=== PATIENT | female | born 1950 | race Caucasian/White ===

== ENCOUNTER 2017-12-07 16:34 | Emergency (ER) | payer MEDICARE, OTHER ==
[~2017-12-07 16:34] MED LIST: AMOX-559 PO; CHOL10005 PO; CIPDEXPT RIGHT EAR; UBID50TA3 PO
--- NOTE | 2017-12-07 17:22 | ER Report ---
History and Physical Hx. of Stated Complaint: Patient with some memory loss from earlier today. States she has had a "blip" like this before (SELENA SCOTT MD) Time Seen By MD: 16:45 [facility] HPI/ROS CHIEF COMPLAINT: Transient memory loss, brief HISTORY OF PRESENT ILLNESS: 67-year-old female with history of transient global amnesia 2, high cholesterol but good cholesterol is high than back cholesterol and ratio is okay and no smoking history denies prior strokes or heart attacks presents with brief memory loss after riding an email and getting a phone call during the email from an old friend whereby she spent over. 45 minutes on the phone. When she returned to her email she cannot recall exact contents of the email or why she sent to so many people. She reports the email was related to a committee meeting. Denies weakness, numbness, headache, nausea, chest pain, shortness of breath or diaphoresis. She does not think this was a stroke. She has not had any other neurological deficits. This occurred today. No other concerns or complaints today. REVIEW OF SYSTEMS: Constitutional: No fever, no chills. Eyes: No discharge. ENT: No sore throat. Cardiovascular: No chest pain, no palpitations. Respiratory: No cough, no shortness of breath. Gastrointestinal: No abdominal pain, no vomiting. Genitourinary: No hematuria. Musculoskeletal: No back pain. Skin: No rashes. Neurological: No headache. (SELENA SCOTT MD) Allergies: Coded Allergies: Sulfa (Sulfonamide Antibiotics) (Verified Allergy, Mild, irritates eyes, ) Home Meds Reported Medications Cholecalciferol (Vitamin D3) (VITAMIN D3) 1,000 Unit Tablet, 1000 UNIT PO, TAB 06/03/17 Discontinued Reported Medications Ubidecarenone (COQ10) Unknown Strength Tab.chew, PO, TAB.CHEW 06/03/17 Discontinued Scripts Ciprofloxacin/Dexamethasone 0.3%-0.1% Otic [place] (CIPRODEX 0.3%-0.1% OTIC SUSP) 7.5 Ml Soln, 5 DROP RIGHT EAR BID for 7 Days, #1 BOT 0 Refills Prov:BHUMIKA MCINTYRE JR, MD 06/19/17 Amoxicillin/Pot Clav 875-125 Mg Tab (AUGMENTIN 875-125 TABLET) 1 Each Tablet, 1 TAB PO Q12H for 14 Days, #28 TAB Prov:BHUMIKA MCINTYRE JR, MD 06/15/17 Smoking Status: Never Smoker (SELENA SCOTT MD) Constitutional Vital Sign - Last 24 Hours 12/07/17 12/07/17 12/07/17 12/07/17 16:39 16:45 17:00 17:15 Temp 98.5 Pulse 89 85 85 88 Resp 16 15 20 B/P (MAP) 155/85 150/101 (117) Pulse Ox 91 94 95 O2 Delivery Room Air 12/07/17 12/07/17 12/07/17 12/07/17 17:30 17:45 18:00 18:30 Pulse 75 79 76 76 Resp 11 22 B/P (MAP) 132/87 (102) 149/81 (103) 168/104 (125) Pulse Ox 92 (RODRIGUEZ WASHINGTON MD) Physical Exam General Appearance: The patient is alert, has no immediate need for airway protection and no signs of toxicity. Smiling, in no acute distress. Eyes: Pupils equal and round no pallor or injection. ENT, Mouth: Mucous membranes are moist. Respiratory: There are no retractions, lungs are clear to auscultation. Cardiovascular: Regular rate and rhythm. No murmurs gallops or rubs Gastrointestinal: Abdomen is soft and non tender, no masses, bowel sounds normal. Neurological: Normal full neurological exam including normal cerebellar function bilateral upper and lower extremities as well as normal Romberg. Skin: Warm and dry, no rashes. Musculoskeletal: Neck is supple non tender. Extremities are nontender, nonswollen and have full range of motion. No edema DIFFERENTIAL DIAGNOSIS: After history and physical exam differential diagnosis was considered for transient transient global amnesia, transient ischemia due to underlying medical cause, stroke or TIA. (SELENA SCOTT MD) Medical Decision Making Data Points Result Diagram: 12/07/17 1746 12/07/17 1746 Laboratory Hematology Test 12/07/17 17:46 Red Blood Count 4.84 M/uL (4.17-5.56) Mean Corpuscular Volume 89.0 fL (80.0-96.0) Mean Corpuscular Hemoglobin 30.2 pg (26.0-33.0) Mean Corpuscular Hemoglobin Concent 33.9 g/dL (32.0-36.0) Red Cell Distribution Width 13.4 % (11.5-14.5) Mean Platelet Volume 7.9 fL (7.2-11.1) Neutrophils (%) (Auto) 62.8 % (39.4-72.5) Lymphocytes (%) (Auto) 28.7 % (17.6-49.6) Monocytes (%) (Auto) 7.6 % (4.1-12.4) Eosinophils (%) (Auto) 0.4 % (0.4-6.7) Basophils (%) (Auto) 0.5 % (0.3-1.4) Nucleated RBC Relative Count (auto) 0.0 /100WBC Neutrophils # (Auto) 3.5 K/uL (2.0-7.4) Lymphocytes # (Auto) 1.6 K/uL (1.3-3.6) Monocytes # (Auto) 0.4 K/uL (0.3-1.0) Eosinophils # (Auto) 0.0 K/uL (0.0-0.5) Basophils # (Auto) 0.0 K/uL (0.0-0.1) Nucleated RBC Absolute Count (auto) 0.00 K/uL Sodium Level 138 mmol/L (137-145) Potassium Level 4.1 mmol/L (3.5-5.0) Chloride Level 104 mmol/L (98-107) Carbon Dioxide Level 23 mmol/L (22-31) Blood Urea Nitrogen 11 mg/dl (7-18) Creatinine 0.80 mg/dl (0.52-1.04) Glomerular Filtration Rate Calc > 60.0 Random Glucose 94 mg/dl (75-110) Calcium Level 9.2 mg/dl (8.4-10.2) Total Bilirubin 0.6 mg/dl (0.2-1.3) Aspartate Amino Transf (AST/SGOT) 21 U/L (0-35) Alanine Aminotransferase (ALT/SGPT) 35 U/L (0-56) Alkaline Phosphatase 92 U/L (0-126) Troponin I < 0.012 ng/ml B-Type Natriuretic Peptide 22 pg/ml (0-100) Total Protein 7.0 gm/dl (6.3-8.2) Albumin 4.1 g/dl (3.5-5.0) Chemistry Test 12/07/17 17:46 White Blood Count 5.6 k/uL (4.5-11.0) Red Blood Count 4.84 M/uL (4.17-5.56) Hemoglobin 14.6 g/dL (12.0-16.0) Hematocrit 43.0 % (34.0-47.0) Mean Corpuscular Volume 89.0 fL (80.0-96.0) Mean Corpuscular Hemoglobin 30.2 pg (26.0-33.0) Mean Corpuscular Hemoglobin Concent 33.9 g/dL (32.0-36.0) Red Cell Distribution Width 13.4 % (11.5-14.5) Platelet Count 284 K/uL (150-450) Mean Platelet Volume 7.9 fL (7.2-11.1) Neutrophils (%) (Auto) 62.8 % (39.4-72.5) Lymphocytes (%) (Auto) 28.7 % (17.6-49.6) Monocytes (%) (Auto) 7.6 % (4.1-12.4) Eosinophils (%) (Auto) 0.4 % (0.4-6.7) Basophils (%) (Auto) 0.5 % (0.3-1.4) Nucleated RBC Relative Count (auto) 0.0 /100WBC Neutrophils # (Auto) 3.5 K/uL (2.0-7.4) Lymphocytes # (Auto) 1.6 K/uL (1.3-3.6) Monocytes # (Auto) 0.4 K/uL (0.3-1.0) Eosinophils # (Auto) 0.0 K/uL (0.0-0.5) Basophils # (Auto) 0.0 K/uL (0.0-0.1) Nucleated RBC Absolute Count (auto) 0.00 K/uL Glomerular Filtration Rate Calc > 60.0 Calcium Level 9.2 mg/dl (8.4-10.2) Total Bilirubin 0.6 mg/dl (0.2-1.3) Aspartate Amino Transf (AST/SGOT) 21 U/L (0-35) Alanine Aminotransferase (ALT/SGPT) 35 U/L (0-56) Alkaline Phosphatase 92 U/L (0-126) Troponin I < 0.012 ng/ml B-Type Natriuretic Peptide 22 pg/ml (0-100) Total Protein 7.0 gm/dl (6.3-8.2) Albumin 4.1 g/dl (3.5-5.0) (RODRIGUEZ WASHINGTON MD) EKG/Imaging Imaging EXAMINATION: MRI Brain without intravenous contrast MRI Brain with intravenous contrast HISTORY: Transient amnesia. COMPARISON: Temporal bone CT dated 06/22/2017. TECHNIQUE: Multi-planar, multi-sequence brain MRI was performed before and after IV gadolinium. CONTRAST: 15 mL of IV MultiHance FINDINGS: Brain volume: Normal. Sagittal midline structures: Negative. Ventricles: Negative. Acute ischemic changes: None. Hemorrhage: None. Masses / edema: None. Enhancement: Negative. Major-white: Negative. White matter: Mild patchy FLAIR hyperintensity in the frontal white matter. Vessels: Negative. Extra-axial: Negative. Calvarium / scalp: Negative. Skull base: Negative. Visualized sinuses / orbits: Leftward nasal septal deviation. Postsurgical changes in the right mastoid bone with mild fluid in the right mastoid cavity. Restricted diffusion versus artifact in the right mastoid cavity (series 3, image 6; series 4, image 6). Visualized upper neck: Negative. IMPRESSION: 1. No acute intracranial abnormality or mass. 2. Mild chronic white matter changes in the frontal lobes, nonspecific but most likely representing chronic microvascular ischemia. 3. Restricted diffusion versus artifact in the right mastoid cavity (series 3, image 6; series 4, image 6). This could represent recurrent cholesteatoma. High resolution temporal bone MRI with high-resolution diffusion-weighted imaging may be helpful to confirm this finding if it would exchange underwriting consultant. Report Dictated By: Joseph Sylvester MD at 12/07/2017 8:03 PM (PADMINIRODRIGUEZ ADARI MD) ED Course/Re-evaluation Clinical Indication for ER IV: IV Access ED Course I reviewed this patient's information with Dr. Scott at shift change with sign out today. I discussed lab results with the patient and family/friends. Transient global amnesia, uncertain cause. Perhaps stress related or due to poor sleep.. Has had the same in the past with workup that was negative. Concern for possible transient ischemic attack. Discussed doing MRI tonight. Based on concern for TIA as cause of amnesia, we will get the MRI done tonight here in the ER; urgent/emergent MRI to rule out any damage to brain in deciding TIA versus stroke. No current deficits. Discussed medications that we use to prevent stroke in patients who have had a stroke or TIA including cholesterol medications and low dose aspirin daily. She does not really want to start any new medicines at this time and will discuss this further with primary care. After MRI was done, reviewed these results with the patient and her . Chronic microischemic changes, no stroke, changes in right mastoid, concern for recurrent cholesteatoma. Labs reviewed and unremarkable and discussed with the patient. Patient having increased stress and some increased problems processing information and short term memory problem. Recommended follow-up with primary care and with neurology per primary care. She is scheduled to see Dr. So in [place] for the question of cholesteatoma and will keep that appointment. Reviewed instructions with her . Decision to Disposition Date: Dec 07, 2017 Decision to Disposition Time: 20:56 (RODRIGUEZ WASHINGTON MD) Depart Departure Latest Vital Signs Vital Signs Date Time Temp Pulse Resp B/P (MAP) Pulse Ox O2 Delivery O2 Flow Rate FiO2 12/07/17 18:30 76 168/104 (125) 12/07/17 18:00 22 92 12/07/17 16:39 98.5 Room Air (RODRIGUEZ WASHINGTON MD) Impression: Primary Impression: Transient global amnesia Condition: Improved Disposition: HOME OR SELF-CARE Patient Instructions: Transient Global Amnesia (ED), Transient Ischemic Attack (ED) Additional Instructions: We do not know the cause of your memory problems today. This appears to be another episode of Transient Global Amnesia. We know you have not had a stroke. We cannot tell if this is a Transient Ischemic Attack (TIA). We want you to follow-up with your primary care provider in the next few days. You will need to follow-up with Neurology for further evaluation as well. Talk to you primary care provider as to who they would like you to see. Follow-up with Dr. So in [place] as well as you have planned. SELENA SCOTT MD Dec 07, 2017 17:22 RODRIGUEZ WASHINGTON MD Dec 07, 2017 18:56
--- NOTE | 2017-12-07 17:50 | EKG ---
[facility] PATIENT NAME: RAMILA LERMA : [id number] MR: [id number] V: [id number] EXAM DATE: ORDERING PHYSICIAN: SELENA SCOTT TECHNOLOGIST: LUIS Test Reason : Blood Pressure : / mmHG Vent. Rate : 082 BPM Atrial Rate : 082 BPM P-R Int : 154 ms QRS Dur : 074 ms QT Int : 374 ms P-R-T Axes : 069 007 041 degrees QTc Int : 436 ms Sinus rhythm Borderline left axis Possible Left atrial enlargement Abnormal ECG Confirmed by HALEY BECERRA ([id number]) on 12/08/2017 6:26:50 AM Referred By: Confirmed By:HALEY BECERAR
[2017-12-07 17:54] LABS: PLATELET COUNT, AUTOMATED 284 K/uL (150-450)
--- NOTE | 2017-12-07 18:07 | RADIOLOGY IMAGING REPORT ---
FACILITY: [facility] PATIENT NAME: Rukhsana Heck : 1950 MR: [id number] V: [id number] EXAM DATE: ORDERING PHYSICIAN: SELENA SCOTT TECHNOLOGIST: Location: [facility] [place] Patient: Rukhsana Heck : 1950 Visit/Account:[id number] Date of Sevice: 12/07/2017 Exam type: CHEST SINGLE AP History: wheezing, dyspnea; for edema Comparison: None. Findings: The lungs are free of acute effusions, infiltrates or edema. No evidence of a pneumothorax or pneumo mediastinum. The cardiac silhouette is normal in size. The trachea is in midline. IMPRESSION: 1. No acute cardiopulmonary process is seen Report Dictated By: Megha Islas MD at 12/07/2017 6:02 PM Report E-Signed By: Megha Islas MD at 12/07/2017 6:03 PM WSN:[id number]
[2017-12-07 18:30] VITALS: BP 168/104
[2017-12-07] MEDS ORDERED: GADOBENATE 529MG/1ML 15ML VIAL IVP ONE (19:06)
--- NOTE | 2017-12-07 20:20 | RADIOLOGY IMAGING REPORT ---
FACILITY: [facility] [place] PATIENT NAME: Rukhsana Heck : 1950 MR: [id number] V: [id number] EXAM DATE: ORDERING PHYSICIAN: RODRIGUEZ WASHINGTON TECHNOLOGIST: Location: [facility] Patient: Rukhsana Heck : 1950 Visit/Account:[id number] Date of Sevice: 12/07/2017 EXAMINATION: MRI Brain without intravenous contrast MRI Brain with intravenous contrast HISTORY: Transient amnesia. COMPARISON: Temporal bone CT dated 06/22/2017. TECHNIQUE: Multi-planar, multi-sequence brain MRI was performed before and after IV gadolinium. CONTRAST: 15 mL of IV MultiHance FINDINGS: Brain volume: Normal. Sagittal midline structures: Negative. Ventricles: Negative. Acute ischemic changes: None. Hemorrhage: None. Masses / edema: None. Enhancement: Negative. Major-white: Negative. White matter: Mild patchy FLAIR hyperintensity in the frontal white matter. Vessels: Negative. Extra-axial: Negative. Calvarium / scalp: Negative. Skull base: Negative. Visualized sinuses / orbits: Leftward nasal septal deviation. Postsurgical changes in the right mast oid bone with mild fluid in the right mastoid cavity. Restricted diffusion versus artifact in the rig ht mastoid cavity (series 3, image 6; series 4, image 6). Visualized upper neck: Negative. IMPRESSION: 1. No acute intracranial abnormality or mass. 2. Mild chronic white matter changes in the frontal lobes, nonspecific but most likely representing c hronic microvascular ischemia. 3. Restricted diffusion versus artifact in the right mastoid cavity (series 3, image 6; series 4, moise ge 6). This could represent recurrent cholesteatoma. High resolution temporal bone MRI with high-reso lution diffusion-weighted imaging may be helpful to confirm this finding if it would change managemen t. Report Dictated By: Joseph Sylvester MD at 12/07/2017 8:03 PM Report E-Signed By: Joseph Sylvester MD at 12/07/2017 8:15 PM WSN:[id number]
== END 2017-12-07 21:09 | disposition home or self-care (01) ==
LOC: ER 16:49
DX: G45.4 Transient global amnesia (principal); R06.00 Dyspnea, unspecified
CPT/HCPCS: 36415; 70553; 71045; 83880; 84484; 85025; 93005; 99284; A9577; 82040; 82247; 82310; 82374; 82435; 82565; 82947; 84075; 84132; 84155; 84295; 84450; 84460; 84520

== ENCOUNTER 2018-07-18 11:40 | Observation (INO) | payer MEDICARE, OTHER ==
[~2018-07-18] VITALS: Ht 165.1 cm; Wt 64.9 kg
--- NOTE | 2018-07-18 12:31 | ER Report ---
History and Physical Time Seen By MD: 11:57 Hx. 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 She started having an episode at 1030 this am. this episode is worse than usual. Pt denies trauma of any kind. Pt has repeated herself multiple times in a very few minutes (KATIE PALM MD) HPI/ROS CHIEF COMPLAINT: amnesia HISTORY OF PRESENT ILLNESS: Per , patient has had 3 prior episodes of amnesia similar to today, which have all resolved spontaneously. Patient has been diagnosed with transient global amnesia. Patient has had multiple neurology evaluations for same, multiple imaging modalities, without other diagnosis. Patient was helping a friend today when the friend called her stating that she had become amnestic. There is no reported fall or injury. Per this has been similar to prior events with the exception of increased skilled nursing memory loss. Patient is able to say she feels like she may be having a transient global amnesia attack. She does not recall events of today and is having difficulty recalling recent events. She also states she feels like she has had some very interesting dreams. She denies any pain or other concerning symptoms. REVIEW OF SYSTEMS: Constitutional: No fever, no chills. Eyes: No discharge. ENT: No sore throat. Cardiovascular: No chest pain, no palpitations. Respiratory: No cough, no shortness of breath. Gastrointestinal: No abdominal pain, no vomiting. Genitourinary: No hematuria. Musculoskeletal: No back pain. Skin: No rashes. Neurological: No headache. (KATIE PALM MD) Allergies: Coded Allergies: Sulfa (Sulfonamide Antibiotics) (Verified Allergy, Mild, irritates eyes, 07/18/18) Home Meds Reported Medications Baclofen (Baclofen) 5 Mg Tablet 07/18/18 Cholecalciferol (Vitamin D3) (VITAMIN D3) 1,000 Unit Tablet, 1000 UNIT PO, TAB 06/03/17 Reviewed Nurses Notes: Yes (KATIE PALM MD) Smoking Status: Never Smoker Hx Substance Use Disorder: No Hx Alcohol Use: Yes (a little) (KATIE PALM MD) Constitutional Vital Sign - Last 24 Hours 07/18/18 07/18/18 07/18/18 07/18/18 11:45 11:48 12:00 12:10 Temp 98.0 Pulse 89 91 Resp 20 15 B/P (MAP) 165/105 165/105 (125) 166/114 (131) Pulse Ox 96 96 O2 Delivery Room Air (JORY PALM MD) Physical Exam General Appearance: The patient is alert, has no immediate need for airway protection and no signs of toxicity. Eyes: Pupils equal and round no pallor or injection. ENT, Mouth: Mucous membranes are moist. Respiratory: There are no retractions, lungs are clear to auscultation. Cardiovascular: Regular rate and rhythm. No carotid bruit Gastrointestinal: Abdomen is soft and non tender, no masses, bowel sounds normal. Neurological: pt is awake and alert, she is oriented initially to place and self, as well as , but not to year/month. On repeat questioning 10 min later, without being told, she is able to give year and season, and surmise month. CN ii-xii intact. 5/5 ms throughout. Nl sensation. No aphasia. NIHSS 1 for orientation. Skin: Warm and dry, no rashes. Musculoskeletal: Neck is supple non tender. Extremities are nontender, nonswollen and have full range of motion. DIFFERENTIAL DIAGNOSIS: After history and physical exam differential diagnosis was considered for altered mental status including but not limited to hypoglycemia, infectious process, electrolyte abnormality, head injury and intoxicants. (KATIE PALM MD) Medical Decision Making Data Points Result Diagram: 07/18/18 1247 07/18/18 1247 Laboratory Hematology Test 07/18/18 00:00 07/18/18 12:41 07/18/18 12:47 Urine Opiates Screen Negative Urine Barbiturates Screen Negative Ur Tricyclic Antidepressants Screen Negative Urine Phencyclidine Screen Negative Urine Amphetamines Screen Negative Urine Benzodiazepines Screen Negative Urine Cocaine Screen Negative Urine Cannabinoids Screen Negative Urine Color Colorless Urine Clarity Clear Urine pH 6.0 pH (4.8-9.5) Urine Specific [place] 1.003 Urine Protein Negative mg/dL (NEGATIVE) Urine Glucose (UA) Negative mg/dL (NEGATIVE) Urine Ketones Trace mg/dL (NEGATIVE) Urine Blood Negative (NEGATIVE) Urine Nitrite Negative (NEGATIVE) Urine Bilirubin Negative (NEGATIVE) Urine Urobilinogen Negative mg/dL (0.2-1.9) Urine Leukocyte Esterase Negative (NEGATIVE) Urine RBC <1 /HPF (0-2/HPF) Urine WBC None /HPF (0-5/HPF) Urine Squamous Epithelial Cells None /LPF (</=FEW) Urine Bacteria Negative /HPF (NONE-FEW) Urine Mucus None /HPF (NONE-FEW) Red Blood Count 5.15 M/uL (4.17-5.56) Mean Corpuscular Volume 90.4 fL (80.0-96.0) Mean Corpuscular Hemoglobin 31.0 pg (26.0-33.0) Mean Corpuscular Hemoglobin Concent 34.3 g/dL (32.0-36.0) Red Cell Distribution Width 13.3 % (11.5-14.5) Mean Platelet Volume 8.4 fL (7.2-11.1) Neutrophils (%) (Auto) 72.9 % (39.4-72.5) Lymphocytes (%) (Auto) 19.4 % (17.6-49.6) Monocytes (%) (Auto) 6.7 % (4.1-12.4) Eosinophils (%) (Auto) 0.5 % (0.4-6.7) Basophils (%) (Auto) 0.5 % (0.3-1.4) Nucleated RBC Relative Count (auto) 0.1 /100WBC Neutrophils # (Auto) 5.7 K/uL (2.0-7.4) Lymphocytes # (Auto) 1.5 K/uL (1.3-3.6) Monocytes # (Auto) 0.5 K/uL (0.3-1.0) Eosinophils # (Auto) 0.0 K/uL (0.0-0.5) Basophils # (Auto) 0.0 K/uL (0.0-0.1) Nucleated RBC Absolute Count (auto) 0.00 K/uL Sodium Level 140 mmol/L (137-145) Potassium Level 3.9 mmol/L (3.5-5.0) Chloride Level 103 mmol/L (98-107) Carbon Dioxide Level 26 mmol/L (22-31) Blood Urea Nitrogen 17 mg/dl (7-18) Creatinine 0.80 mg/dl (0.52-1.04) Glomerular Filtration Rate Calc > 60.0 Random Glucose 103 mg/dl (75-110) Calcium Level 9.8 mg/dl (8.4-10.2) Magnesium Level 2.1 mg/dl (1.7-2.2) Total Bilirubin 0.8 mg/dl (0.2-1.3) Aspartate Amino Transf (AST/SGOT) 24 U/L (0-35) Alanine Aminotransferase (ALT/SGPT) 27 U/L (0-56) Alkaline Phosphatase 103 U/L (0-126) Total Protein 7.9 g/dl (6.3-8.2) Albumin 4.6 g/dl (3.5-5.0) Chemistry Test 07/18/18 00:00 07/18/18 12:41 07/18/18 12:47 Urine Opiates Screen Negative Urine Barbiturates Screen Negative Ur Tricyclic Antidepressants Screen Negative Urine Phencyclidine Screen Negative Urine Amphetamines Screen Negative Urine Benzodiazepines Screen Negative Urine Cocaine Screen Negative Urine Cannabinoids Screen Negative Urine Color Colorless Urine Clarity Clear Urine pH 6.0 pH (4.8-9.5) Urine Specific [place] 1.003 Urine Protein Negative mg/dL (NEGATIVE) Urine Glucose (UA) Negative mg/dL (NEGATIVE) Urine Ketones Trace mg/dL (NEGATIVE) Urine Blood Negative (NEGATIVE) Urine Nitrite Negative (NEGATIVE) Urine Bilirubin Negative (NEGATIVE) Urine Urobilinogen Negative mg/dL (0.2-1.9) Urine Leukocyte Esterase Negative (NEGATIVE) Urine RBC <1 /HPF (0-2/HPF) Urine WBC None /HPF (0-5/HPF) Urine Squamous Epithelial Cells None /LPF (</=FEW) Urine Bacteria Negative /HPF (NONE-FEW) Urine Mucus None /HPF (NONE-FEW) White Blood Count 7.8 k/uL (4.5-11.0) Red Blood Count 5.15 M/uL (4.17-5.56) Hemoglobin 16.0 g/dL (12.0-16.0) Hematocrit 46.6 % (34.0-47.0) Mean Corpuscular Volume 90.4 fL (80.0-96.0) Mean Corpuscular Hemoglobin 31.0 pg (26.0-33.0) Mean Corpuscular Hemoglobin Concent 34.3 g/dL (32.0-36.0) Red Cell Distribution Width 13.3 % (11.5-14.5) Platelet Count 321 K/uL (150-450) Mean Platelet Volume 8.4 fL (7.2-11.1) Neutrophils (%) (Auto) 72.9 % (39.4-72.5) Lymphocytes (%) (Auto) 19.4 % (17.6-49.6) Monocytes (%) (Auto) 6.7 % (4.1-12.4) Eosinophils (%) (Auto) 0.5 % (0.4-6.7) Basophils (%) (Auto) 0.5 % (0.3-1.4) Nucleated RBC Relative Count (auto) 0.1 /100WBC Neutrophils # (Auto) 5.7 K/uL (2.0-7.4) Lymphocytes # (Auto) 1.5 K/uL (1.3-3.6) Monocytes # (Auto) 0.5 K/uL (0.3-1.0) Eosinophils # (Auto) 0.0 K/uL (0.0-0.5) Basophils # (Auto) 0.0 K/uL (0.0-0.1) Nucleated RBC Absolute Count (auto) 0.00 K/uL Glomerular Filtration Rate Calc > 60.0 Calcium Level 9.8 mg/dl (8.4-10.2) Magnesium Level 2.1 mg/dl (1.7-2.2) Total Bilirubin 0.8 mg/dl (0.2-1.3) Aspartate Amino Transf (AST/SGOT) 24 U/L (0-35) Alanine Aminotransferase (ALT/SGPT) 27 U/L (0-56) Alkaline Phosphatase 103 U/L (0-126) Total Protein 7.9 g/dl (6.3-8.2) Albumin 4.6 g/dl (3.5-5.0) Toxicology Test 07/18/18 00:00 Urine Opiates Screen Negative Urine Barbiturates Screen Negative Ur Tricyclic Antidepressants Screen Negative Urine Phencyclidine Screen Negative Urine Amphetamines Screen Negative Urine Benzodiazepines Screen Negative Urine Cocaine Screen Negative Urine Cannabinoids Screen Negative Urinalysis Test 07/18/18 12:41 Urine Color Colorless Urine Clarity Clear Urine pH 6.0 pH (4.8-9.5) Urine Specific [place] 1.003 Urine Protein Negative mg/dL (NEGATIVE) Urine Glucose (UA) Negative mg/dL (NEGATIVE) Urine Ketones Trace mg/dL (NEGATIVE) Urine Blood Negative (NEGATIVE) Urine Nitrite Negative (NEGATIVE) Urine Bilirubin Negative (NEGATIVE) Urine Urobilinogen Negative mg/dL (0.2-1.9) Urine Leukocyte Esterase Negative (NEGATIVE) Urine RBC <1 /HPF (0-2/HPF) Urine WBC None /HPF (0-5/HPF) Urine Squamous Epithelial Cells None /LPF (</=FEW) Urine Bacteria Negative /HPF (NONE-FEW) Urine Mucus None /HPF (NONE-FEW) (JORY PALM MD) EKG/Imaging EKG Interpretation 12 lead EKG: Rhythm: Normal sinus rhythm [place]: Normal QRS: Normal ST segments: Normal Monitor Interpretation: Normal Sinus Rhythm (KATIE PALM MD) ED Course/Re-evaluation ED Course Patient presents with nontraumatic change in mental status. Her symptoms are most consistent with her prior transient global amnesia. We will evaluate for any evidence of new findings. Per she has had multiple MRIs as well as CTAs and has never been told she has an aneurysm or other intracranial abnormal ity. ED eval is unremarkable. At 1330, no significant improvement in symptoms. I discussed findings with patient and . He would like to have her watched for a bit more. If during this time she returns to baseline as she has in past, it is reasonable to discharge as they have neurologist that she saw one month ago and can follow-up with an [facility]. If, however, symptoms do not resolve, we will discuss neurology consult and admission versus transfer for further evaluation of other etiologies. (KATIE PALM MD) ED Course Patient still symptomatic after 8 hours of symptoms. Symptoms still consistent with TGA. No other neurologic symptoms or deficits. An MRI obtained only because course is longer than usual. MRI of the brain shows no evidence of CVA. CT and CTA of the head and neck also no acute findings to suggest ischemic etiology of her symptoms. This is c/w TGA. Symptoms could be prolonged due to recent use of Baclofen. Will admit to hospitalist for observation given the patient's symptoms still have not improved. Decision to Disposition Date: Jul 18, 2018 Decision to Disposition Time: 17:40 (JORY PALM MD) Depart Departure Latest Vital Signs Vital Signs Date Time Temp Pulse Resp B/P (MAP) Pulse Ox O2 Delivery O2 Flow Rate FiO2 07/18/18 12:10 91 15 96 07/18/18 12:00 166/114 (131) 07/18/18 11:45 98.0 Room Air (JORY PALM MD) Impression: Primary Impression: Transient global amnesia Condition: Improved Disposition: Admitted from ER Referrals: ORALIA TA MD (PCP) KATIE PALM MD Jul 18, 2018 12:31 JORY PALM MD Jul 18, 2018 17:41
--- NOTE | 2018-07-18 13:00 | RADIOLOGY IMAGING REPORT ---
FACILITY: [facility] PATIENT NAME: Rukhsana Heck : 1950 MR: [id number] V: [id number] EXAM DATE: ORDERING PHYSICIAN: KATIE PALM TECHNOLOGIST: Location: [facility] Patient: Rukhsana Heck : 1950 Visit/Account:[id number] Date of Sevice: 07/18/2018 Technique: CHEST SINGLE AP HISTORY: shortness of breath Comparison studies: Chest radiograph December 07, 2017 FINDINGS: No acute airspace consolidation. No pleural effusion. The cardiomediastinal silhouette is u nchanged. IMPRESSION: 1. No acute cardiopulmonary process. Report Dictated By: Flip Moore DO at 07/18/2018 12:54 PM Report E-Signed By: Flip Moore DO at 07/18/2018 12:56 PM WSN:[id number]
[2018-07-18 13:07] LABS: PLATELET COUNT, AUTOMATED 321 K/uL (150-450)
--- NOTE | 2018-07-18 13:07 | EKG ---
FACILITY: [facility] PATIENT NAME: RAMILA LERMA : [id number] MR: [id number] V: [id number] EXAM DATE: ORDERING PHYSICIAN: KATIE PALM TECHNOLOGIST: SHADIA Test Reason : ALOC Blood Pressure : / mmHG Vent. Rate : 088 BPM Atrial Rate : 088 BPM P-R Int : 150 ms QRS Dur : 076 ms QT Int : 352 ms P-R-T Axes : 066 010 038 degrees QTc Int : 425 ms Normal sinus rhythm Normal ECG When compared with ECG of 07-DEC-2017 17:22, No significant change was found Confirmed by Boby Carballo ([id number]) on 07/18/2018 2:14:39 PM Referred By: NÉSTOR Confirmed By:Boby Mills
--- NOTE | 2018-07-18 13:08 | RADIOLOGY IMAGING REPORT ---
FACILITY: [facility] [place] PATIENT NAME: Rukhsana Heck : 1950 MR: [id number] V: [id number] EXAM DATE: ORDERING PHYSICIAN: KATIE PALM TECHNOLOGIST: Location: [facility] [place] Patient: Rukhsana Heck : 1950 Visit/Account:[id number] Date of Sevice: 07/18/2018 CT Head without contrast Indication: Amnesia Comparison: None available Technique: Axial CT images were obtained through the brain from the skull base to the vertex without administration of IV contrast. Reformatted coronal and sagittal images were also obtained. One of the following dose optimization techniques was utilized in the performance of this exam: Autom ated exposure control; adjustment of the mA and/or kV according to the patient's size; or use of an i terative reconstruction technique. Specific details can be referenced in the facility's radiology C T exam operational policy. Findings: There is no acute hemorrhage, midline shift or mass effect. No extra-axial fluid collecti ons. The puri-white matter differentiation is maintained. The ventricles and basal cisterns are nor mal in contour and appearance. The visualized paranasal sinuses and mastoid air cells are clear. IMPRESSION: 1. No acute intracranial process. Report Dictated By: Flip Moore DO at 07/18/2018 1:01 PM Report E-Signed By: Flip Moore DO at 07/18/2018 1:06 PM WSN:[id number]
[2018-07-18] MEDS ORDERED: BACL5TAB PO (14:15)
[2018-07-18] MEDS ORDERED: GADOBENATE 529MG/1ML 15ML VIAL IVP ONE (16:35)
--- NOTE | 2018-07-18 17:25 | RADIOLOGY IMAGING REPORT ---
FACILITY: [facility] [place] PATIENT NAME: Rukhsana Heck : 1950 MR: [id number] V: [id number] EXAM DATE: ORDERING PHYSICIAN: JORY PALM TECHNOLOGIST: Location: [facility] [place] Patient: Rukhsana Heck : 1950 Visit/Account:[id number] Date of Sevice: 07/18/2018 EXAMINATION: MR Brain without and with IV contrast HISTORY: Confusion. Memory loss. TGA versus CVA. COMPARISON: CT head without contrast performed today. MR brain without and with contrast 12/07/2017 TECHNIQUE: Multi-planar, multi-sequence brain MRI was performed before and after IV gadolinium. CONTRAST: 15 mL IV MultiHance FINDINGS: Brain volume: Normal. Sagittal midline structures: Normal. Ventricles: Normal. Acute ischemic changes: None. Hemorrhage: None. Masses / edema: None. Enhancement: Normal. Major-white: Negative. White matter lesions: Normal. Vessels: Normal. Extra-axial: None. Calvarium / scalp: Negative. Skull base: Negative. Visualized sinuses / orbits: The paranasal sinuses are unopacified. There is fluid opacification wit h right-sided mastoid air cells with stable postsurgical changes. The left mastoid air cells are unop acified. Visualized upper neck: Negative. IMPRESSION: No MR evidence of ischemia or other acute intracranial pathology. Stable exam. Report Dictated By: Thee Shaffer MD at 07/18/2018 5:15 PM Report E-Signed By: Thee Shaffer MD at 07/18/2018 5:21 PM WSN:[id number]
[2018-07-18 18:30] VITALS: BP 147/105
[2018-07-18] MEDS ORDERED: UBID30CA27 PO (18:41)
[2018-07-18] MEDS ORDERED: NAPR220C12 PO (18:41)
[2018-07-18] MEDS ORDERED: ACETAMINOPHEN 500 MG TAB PO PRN (18:55)
[2018-07-18] MEDS ORDERED: NAPROXEN 500 MG TAB PO PRN (18:55)
[2018-07-18] MEDS ORDERED: FLUSH 10 ML SYR IVP PRN (19:25)
[2018-07-18] MEDS ORDERED: ONDANSETRON 4 MG/2 ML VIAL IVP PRN (19:25)
--- NOTE | 2018-07-18 20:27 | History & Physical ---
History of Present Illness Chief Complaint AMS History of Present Illness 67F with PMHx of transient global amnesia (TGA), admitted after becoming confused and repetitive this am. Per family this is fourth incident 2 in [place], 1 in [place]. Follows with neurology and has been worked up with negative EEG, negative MRI, no current signs infectious process. Usually episodes resolve in 2-3 hours, given the extended duration decision was made to admit for observation. On arrival to floor still circular conversation but does seem to be improving. History Problems: (1) Transient global amnesia Status: Acute (2) TMJ (temporomandibular joint syndrome) Home Meds Reported Medications Naproxen Sodium (ALEVE) 220 Mg Capsule, 220 MG PO HS, CAPSULE 07/18/18 Ubidecarenone (COQ-10) 30 Mg Capsule, PO DAILY, CAPSULE 07/18/18 Baclofen (Baclofen) 5 Mg Tablet, 1 TAB PO HS 07/18/18 Allergies: Coded Allergies: Sulfa (Sulfonamide Antibiotics) (Verified Allergy, Mild, irritates eyes, 1 ) Patient History: FH: arthritis MOTHER, , Age:85 BROTHER OR SISTER FH: breast cancer MOTHER, , Age:85 FH: dementia MOTHER, , Age:85 FH: hypertension FATHER, , Age:89 MOTHER, , Age:85 FH: lung cancer FATHER, , Age:89 FH: melanoma BROTHER OR SISTER Smoking Status: Never Smoker Hx Alcohol Use: Yes (a little) Hx Substance Use Disorder: No Review of Systems All Systems Reviewed/Normal: Yes, Except as Noted Constitutional: No Fever Neurological: Confusion; No Syncope, No Weakness, No Dizziness, No Slurred Speech Respiratory: No Shortness of Breath Gastrointestinal: No Nausea, No Vomiting Exam Vital Signs Vital Signs Date Time Temp Pulse Resp B/P (MAP) Pulse Ox O2 Delivery O2 Flow Rate FiO2 07/18/18 18:30 98.5 88 16 147/105 (119) 94 Room Air General Appearance: Alert, Awake, No Acute Distress Neuro: No Gross deficits (CN 2-12 intact, no cerebellar symptoms, AAOx3, some difficulty with date), Other (Easliy gives name, ) Eyes: PERRLA ENT: Normal Cardiovascular: Normal Rhythm & Peripheral Pulses Respiratory: No Respiratory Distress Chest: No Masses GI: Abd Soft and Non-Tender Extremities: Soft and Non Tender, Warm, Pulses, Perfused; No Edema Integumentary: Skin Intact without Lesion / Mass Psych: Alert & Oriented X3 (Some confusion about recent events but able to give location, year, month) Medical Decision Making Data Points Result Diagram: 07/18/18 1247 07/18/18 1247 Assessment and Plan Problems: (1) Transient global amnesia Status: Acute Assessment & Plan: Acute exacerbation of chronic problem. This is 4th episode. Usually a single episode is typical, previous EEG reportedly negative, MRI and CT negative this admission. Duration is longer than usually experienced in past. Only recent change was addition of baclofen 07.08.2018 will hold this given AMS. No specific intervention necessary, no increase in risk over general population for CVA. (2) TMJ (temporomandibular joint syndrome) Assessment & Plan: Hold baclofen, will use PRN acetaminophen and Naprosyn. Venous Thromboembolism Antithrombotics Is Pt On Any Antithrombotics?: No Prophylaxis Tx Contraindicated Pharmacological Contraindicati: Pt at Low Risk for VTE (anticipate d/c in am) Exam Sepsis Risk: No Definite Risk DON JOHNSON DO Jul 18, 2018 20:27
[2018-07-18] MEDS ORDERED: THIAMINE HCL 200 MG/2 ML INJ IVP ONE (21:00)
[2018-07-19 05:41] VITALS: BP 128/80
[2018-07-19 08:15] VITALS: BP 126/82
[2018-07-19] MEDS ORDERED: NAPR220C12 PO (08:52)
[2018-07-19] MEDS ORDERED: INFLUENZA VIRUS VAC 0.5ML SYR IM ONLY ONE (09:00)
--- NOTE | 2018-07-19 10:53 | Hospitalist Depart ---
Discharge Summary Reason for Hosp/Final Diag: (1) Transient global amnesia Status: Acute Hospital Course & Plan: Acute exacerbation of chronic problem. This is 4th episode. Usually a single episode is typical, previous EEG reportedly negative, MRI and CT negative this admission. Duration is longer than usually experienced in past. Only recent change was addition of baclofen 07.08.2018, which was held throughout admission secondary to AMS. No specific intervention necessary, no increase in risk over general population for CVA. Recommend she stop Baclofen at this time, follow up with neurologist. (2) TMJ (temporomandibular joint syndrome) Hospital Course & Plan: Hold baclofen, will use PRN acetaminophen and Naprosyn. (3) JASIEL (obstructive sleep apnea) Status: Chronic Hospital Course & Plan: She reports she was diagnosed in [place], [place]. Recommend she wear 2liters of oxygen at night time. She does have appointment with pulmonology on Saturday 07/21. She will follow up then. Departure Latest Vital Signs Vital Signs 07/19/18 07/19/18 05:41 08:15 Temp 98.3 Pulse 61 Resp 14 B/P (MAP) 126/82 (97) Pulse Ox 93 O2 Delivery Nasal Cannula O2 Flow Rate 0.5 Weight (Pounds): 143 Result Diagram: 07/18/18 1247 07/18/18 1247 Condition: Improved Discharge: Home, Self Care Discharge Instructions Home Meds Active Scripts Naproxen Sodium (ALEVE) 220 Mg Capsule, 220 MG PO BID, #60 CAPSULE Prov:EMMA SUAREZ [employer]OK[employer] DEALER 07/19/18 Reported Medications Ubidecarenone (COQ-10) 30 Mg Capsule, PO DAILY, CAPSULE 07/18/18 Discontinued Reported Medications Baclofen (Baclofen) 5 Mg Tablet, 1 TAB PO HS 07/18/18 Diet: Regular Special Instructions: Call [facility] at [phone] when you get home so they come set up your oxygen. Keep your pack operator appointment and follow up with your regular physician in the next week. Copies to: LISA PALUMBO MD; ORALIA TA MD ; Venous Thromboembolism Antithrombotics Is Pt On Any Antithrombotics?: No EMMA SUAREZ [facility] Jul 19, 2018 10:53
== END 2018-07-19 08:52 | disposition home or self-care (01) ==
LOC: ER 12:04 → MED 15:50 → INTOOBSV 15:50
PROVIDERS: ADMIT Internal Medicine; ATTEND Internal Medicine
DX: G45.4 Transient global amnesia (principal); M26.69 Other specified disorders of temporomandibular joint; G47.33 Obstructive sleep apnea (adult) (pediatric); R41.82 Altered mental status, unspecified; R06.02 Shortness of breath; R41.0 Disorientation, unspecified
CPT/HCPCS: 70450; 70553; 71045; 80305; 81001; 83735; 85025; 93005; 99284; A9270; A9577; G0378; J3411; 82040; 82247; 82310; 82374; 82435; 82565; 82947; 84075; 84132; 84155; 84295; 84450; 84460; 84520

== ENCOUNTER → 2018-10-07 | Outpatient (CLI) | payer MEDICARE, OTHER ==
[~2018-10-07] MED LIST changes: +BACL5TAB PO; +NAPR220C12 PO; +UBID30CA27 PO
== END ==
LOC: AUD 10:15
PROVIDERS: ATTEND Otolaryngology
DX: H71.91 Unspecified cholesteatoma, right ear (principal)
CPT/HCPCS: 92552